=== PATIENT | female | born 1980 ===

== ENCOUNTER 2018-11-12 11:49 | Outpatient (CLI) | payer OTHER | END 2018-11-12 12:13 | disposition home or self-care (01) | LOC: LAB 11:49 | DX: N20.0 Calculus of kidney (principal); B96.29 Other Escherichia coli [E. coli] as the cause of diseases classified elsewhere; Z01.811 Encounter for preprocedural respiratory examination ==

== ENCOUNTER 2018-11-25 08:38 | Outpatient (CLI) | payer OTHER | END 2018-11-25 08:46 | disposition home or self-care (01) | LOC: LAB 08:38 | DX: N30.00 Acute cystitis without hematuria (principal); B96.29 Other Escherichia coli [E. coli] as the cause of diseases classified elsewhere ==

== ENCOUNTER 2018-11-30 14:30 | Inpatient (IN) | payer OTHER ==
[2018-11-30] MEDS ORDERED: FUSION PLUS CA1 EACH PO (15:27)
[2018-11-30] MEDS ORDERED: [UNRECOGNIZED DRUG - OTHER] PO (15:27)
[2018-11-30] MEDS ORDERED: [UNRECOGNIZED DRUG - OTHER] PO (15:29)
[2018-11-30] MEDS ORDERED: BANOPHEN50 MG PO (15:30)
[2018-11-30] MEDS ORDERED: THYLENOL PO (15:30)
[2018-12-03] MEDS ORDERED: AZOR 10-20 MG1 EACH PO (12:16)
[2018-12-03] MEDS ORDERED: 8 HOUR PAIN RE650 M1 PO (12:16)
== END 2018-12-04 08:05 | disposition home or self-care (01) | DRG 660 ==
LOC: ADM 14:30 → EDSTATUS 14:30 → SURH 12-02 09:00 → O/R 12-02 10:28 → SURH 12-02 14:30 → SURG 12-02 15:58
PROVIDERS: ADMIT Urology
PROC: 0TP98DZ Removal of Intraluminal Device from Ureter, Via Natural or Artificial Opening Endoscopic (ICD-10-PCS; 2018-12-02)
PROC: BT1FZZZ Fluoroscopy of Left Kidney, Ureter and Bladder (ICD-10-PCS; 2018-12-02)
PROC: 30233N1 Transfusion of Nonautologous Red Blood Cells into Peripheral Vein, Percutaneous Approach (ICD-10-PCS; 2018-12-02)
PROC: 0TC74ZZ Extirpation of Matter from Left Ureter, Percutaneous Endoscopic Approach (ICD-10-PCS; principal; 2018-12-02 09:00)
DX: N20.1 Calculus of ureter (principal); N39.0 Urinary tract infection, site not specified; D64.89 Other specified anemias

== ENCOUNTER → 2019-03-20 07:46 | Outpatient (CLI) | payer OTHER ==
[~2019-03-20 07:46] MED LIST: 8 HOUR PAIN RE650 M1 PO; AZOR 10-20 MG1 EACH PO; BANOPHEN50 MG PO; FUSION PLUS CA1 EACH PO; THYLENOL PO; [UNRECOGNIZED DRUG - OTHER] PO; [UNRECOGNIZED DRUG - OTHER] PO
== END | disposition home or self-care (01) ==
LOC: LAB 07:46
DX: N30.00 Acute cystitis without hematuria (principal)

== ENCOUNTER → 2019-10-02 10:31 | Outpatient (CLI) | payer OTHER | END | disposition home or self-care (01) | LOC: LAB 10:31 | DX: N30.00 Acute cystitis without hematuria (principal); N20.0 Calculus of kidney ==